=== PATIENT | male | born 1950 | race Caucasian/White ===

== ENCOUNTER 2016-12-29 21:08 | Inpatient (IN) | payer OTHER ==
[~2016-12-29] VITALS: Ht 172.7 cm; Wt 56.4 kg
[2016-12-30] MEDS ORDERED: LEVAQUIN500 MG PO (00:34)
[2016-12-30 07:10] LABS: HEMOGLOBIN 13.9 gm/dl (14.0-17.5); RED BLOOD COUNT 4.6 M/UL (4.20-5.50); WHITE BLOOD COUNT 5.1 K/UL (4.5-11.0)
[2016-12-30 07:23] LABS: BUN/CREATININE RATIO 22 (0-10)
[2016-12-31 04:40] LABS: HEMOGLOBIN 13.4 gm/dl (14.0-17.5); RED BLOOD COUNT 4.46 M/UL (4.20-5.50); WHITE BLOOD COUNT 10.7 K/UL (4.5-11.0)
[2016-12-31 05:00] LABS: BUN/CREATININE RATIO 26 (0-10)
[2017-01-05 06:16] LABS: HEMOGLOBIN 13.6 gm/dl (14.0-17.5); RED BLOOD COUNT 4.53 M/UL (4.20-5.50); WHITE BLOOD COUNT 8.7 K/UL (4.5-11.0)
[2017-01-05 06:33] LABS: BUN/CREATININE RATIO 20 (0-10)
[2017-01-05] MEDS ORDERED: NORVASC 5 MG TAB5 MG PO (13:42)
[2017-01-05] MEDS ORDERED: ENSURE LIQUID237 ML PO (13:43)
[2017-01-05] MEDS ORDERED: MEDROL DOSEPAK 24 MG PO (13:44)
[2017-01-05] MEDS ORDERED: IPRAT-ALBUT 0.5-3 ML INH (13:45)
[2017-01-05] MEDS ORDERED: PROVENTIL HFA 61 INH INH (13:46)
[2017-01-05] MEDS ORDERED: LOPRESSOR 25 MG25 MG PO (13:47)
[2017-01-05] MEDS ORDERED: THERA-M CAPLET1 EACH PO (13:47)
[2017-01-05] MEDS ORDERED: PROTONIX40 MG PO (13:48)
[2017-01-05] MEDS ORDERED: LIPITOR TAB 2020 MG PO (13:48)
[2017-01-05] MEDS ORDERED: SPIRIVA HANDIH18 MCG INH (13:55)
[2017-01-05] MEDS ORDERED: STIOLTO INH (14:46)
== END 2017-01-05 12:18 | disposition home or self-care (01) | DRG 167 ==
LOC: M/S 22:32
PROVIDERS: Internal Medicine; Internal Medicine Pulmonary Disease; Physician Assistant; ADMIT Internal Medicine
PROC: 0B9J8ZX Drainage of Left Lower Lung Lobe, Via Natural or Artificial Opening Endoscopic, Diagnostic (ICD-10-PCS; principal; 2017-01-04 13:00)
PROC: 0BC68ZZ Extirpation of Matter from Right Lower Lobe Bronchus, Via Natural or Artificial Opening Endoscopic (ICD-10-PCS; principal; 2017-01-04 13:00)
DX: J44.1 Chronic obstructive pulmonary disease with (acute) exacerbation (principal); E46 Unspecified protein-calorie malnutrition; Z68.1 Body mass index [BMI] 19.9 or less, adult; T17.890A Other foreign object in other parts of respiratory tract causing asphyxiation, initial encounter; F11.20 Opioid dependence, uncomplicated; J90 Pleural effusion, not elsewhere classified; J60 Coalworker's pneumoconiosis; M51.36 Other intervertebral disc degeneration, lumbar region; F17.210 Nicotine dependence, cigarettes, uncomplicated; I10 Essential (primary) hypertension; F41.9 Anxiety disorder, unspecified; G40.909 Epilepsy, unspecified, not intractable, without status epilepticus; Z91.14 Patient's other noncompliance with medication regimen; Z91.19 Patient's noncompliance with other medical treatment and regimen; Z86.73 Personal history of transient ischemic attack (TIA), and cerebral infarction without residual deficits; Z79.51 Long term (current) use of inhaled steroids; Z79.899 Other long term (current) drug therapy; Z80.0 Family history of malignant neoplasm of digestive organs; Z99.81 Dependence on supplemental oxygen
CPT/HCPCS: ECHO; 36415; 71020; 80048; 80053; 82040; 82330; 83735; 83880; 84100; 84443; 85027; 85610; 85730; 87015; 87070; 87102; 87116; 87205; 93306; 94640; 94664; 94760; J0171; J0360; J1644; J2250; J2270; J2405; J7040